=== PATIENT | female | born 1965 | race Hispanic/Latino ===

== ENCOUNTER 2017-01-20 16:12 | Emergency (ER) | payer OTHER ==
[2017-01-20 16:31] VITALS: BP 109/69; PULSE 94; RESP 18; TEMP 97.7; O2SAT 99
--- NOTE | 2017-01-20 16:37 | C.PDOC ---
History Of Present Illness 51 year old patient, with a history of hypertension, presents to the ED complaining of nasal congestion for the past 2 weeks. Patient was seen by PMD 3 days ago and was sent home with Flonase and Claritin D. Patient has been taking the medications without improvement of symptoms. Patient denies cough contrary to triage. Patient denies shortness of breath, chest pain, vomiting, or fever. Chief Complaint (Nursing): Cough, Cold, Congestion History Per: Patient History/Exam Limitations: no limitations Onset/Duration Of Symptoms: Other (2 weeks) Current Symptoms Are (Timing): Still Present Severity: Mild Reports Recently: Treated By A Physician Recent travel outside of the [place]: No Past Medical History Reviewed: Historical Data, Nursing Documentation, Vital Signs Vital Signs: Last Vital Signs Temp 97.7 F 01/20/17 16:52 Pulse 94 H 01/20/17 16:52 Resp 18 01/20/17 16:52 BP 109/69 01/20/17 16:52 Pulse Ox 99 01/20/17 17:04 - Medical History PMH: HTN Family History: States: No Known Family Hx - Social History Hx Alcohol Use: No Hx Substance Use: No - Immunization History Hx Tetanus Toxoid Vaccination: No Hx Influenza Vaccination: No Hx Pneumococcal Vaccination: No Review Of Systems Except As Marked, All Systems Reviewed And Found Negative. Constitutional: Negative for: Fever ENT: Positive for: Nose Congestion Cardiovascular: Negative for: Chest Pain Respiratory: Negative for: Cough, Shortness of Breath Gastrointestinal: Negative for: Vomiting Physical Exam - Physical Exam Appears: Non-toxic, No Acute Distress Skin: Warm, Dry Head: Atraumatic, Normacephalic Eye(s): bilateral: Normal Inspection, EOMI Nose: Normal Oral Mucosa: Moist Throat: Normal, No Erythema, No Exudate Neck: Normal ROM, Supple Chest: Symmetrical Cardiovascular: Rhythm Regular Respiratory: Normal Breath Sounds, No Rales, No Rhonchi, No Wheezing Gastrointestinal/Abdominal: Soft, No Tenderness ED Course And Treatment O2 Sat by Pulse Oximetry: 99 (RA) Pulse Ox Interpretation: Normal Disposition - Disposition Referrals: Nelson Pierson MD [Staff Provider] - Jose Mena MD [Staff Provider] - Disposition: HOME/ ROUTINE Disposition Time: 16:34 Condition: STABLE Additional Instructions: Follow up with ENT within 1-2 days. Return to ED if feel worse. Prescriptions: Mometasone Furoate [Nasonex] 1 puff NS BID #1 bot Pseudoephedrine HCl [Sudafed] 30 mg PO BID #14 tablet Instructions: Cold Symptoms (ED) - Clinical Impression Clinical Impression: Nasal congestion - PA / ETHNOLOGY PROFESSOR / Resident Statement MD/DO has reviewed & agrees with the documentation as recorded. - Scribe Statement The provider has reviewed the documentation as recorded by the Scribe Marissa Nunez All medical record entries made by the Scribe were at my direction and personally dictated by me. I have reviewed the chart and agree that the record accurately reflects my personal performance of the history, physical exam, medical decision making, and the department course for this patient. I have also personally directed, reviewed, and agree with the discharge instructions and disposition.
== END 2017-01-20 16:52 | disposition home or self-care (01) ==
LOC: C.ER 16:12
DX: R09.81 Nasal congestion (principal)